=== PATIENT | male | born 1955 | race Caucasian/White ===

== ENCOUNTER 2019-08-09 19:15 | Emergency (ER) | payer MEDICARE ==
[~2019-08-09] VITALS: Ht 170.2 cm; Wt 110.0 kg
[~2019-08-09 19:15] MED LIST: ALLO100T PO; ATOR40TA75 PO; CIPR-249 PO; COMBAER6 INH; ENAL20TA PO; FLON0.054; FLUT11IN INH; FURO20TA2 PO; GEMF600T5 PO; HYDR-3713 PO; IPRA0.00 INH; IPRAINH INH; METR-265 PO; MOBI4TAB PO; OMEP1CAP73 PO; PROAAER10 INH
[2019-08-09] MEDS ORDERED: PRED20TA PO (19:41)
[2019-08-09] MEDS ORDERED: AZIT-12 PO (19:41)
[2019-08-09] MEDS ORDERED: OXYC1TAB23 PO (19:41)
[2019-08-09] MEDS ORDERED: GABA600T4 PO (19:45)
[2019-08-09] MEDS ORDERED: METF10004 PO (19:45)
[2019-08-09 19:54] LABS: HEMATOCRIT 35.3 % (42.0-52.0); HEMOGLOBIN 12.3 g/dl (13.5-17.5); LYMPH # 1.1 10^3/uL (1.5-5.0); LYMPH % 15.5 % (24.0-44.0); MEAN CORPUSCULAR HEMOGLOBIN 34.3 pg (27.0-33.0); MEAN CORPUSCULAR HGB CONC 34.8 g/dl (32.0-36.5); MEAN CORPUSCULAR VOLUME 98.3 fl (80.0-96.0); MONO # 0.5 10^3/uL (0.0-0.8); MONO % 7.4 % (0.0-5.0); NEUTROPHILS # 5.3 10^3/uL (1.5-8.5); NEUTROPHILS % 76.2 % (36.0-66.0); PLATELET COUNT, AUTOMATED 199 10^3/uL (150-450); RED BLOOD COUNT 3.59 10^6/uL (4.30-6.10); WHITE BLOOD COUNT 6.9 10^3/uL (4.0-10.0)
[2019-08-09 19:58] LABS: INR 0.98; PROTHROMBIN TIME 12.7 SECONDS (11.8-14.0)
[2019-08-09 19:59] LABS: PARTIAL THROMBOPLASTIN TIME 31.8 SECONDS (25.0-38.4)
[2019-08-09 20:06] LABS: BLOOD UREA NITROGEN 21 MG/DL (7-18); CALCIUM LEVEL 8.8 MG/DL (8.8-10.2); CARBON DIOXIDE LEVEL 31 MEQ/L (21-32); CHLORIDE LEVEL 102 MEQ/L (98-107); CK-MB VALUE MASS 2.2 NG/ML (<3.6); CPK CREATINE PHOSPHOKINASE 132 U/L (39-308); CREATININE FOR GFR 1.09 MG/DL (0.70-1.30); GLOMERULAR FILTRATION RATE > 60.0 (>49); GLUCOSE, FASTING 120 MG/DL (70-100); MB/CK RELATIVE INDEX 1.67 (< OR =4); NT-PRO BNP 188 PG/ML (<125); POTASSIUM SERUM 4.5 MEQ/L (3.5-5.1); SODIUM LEVEL 140 MEQ/L (136-145); TROPONIN I 0.02 NG/ML (< 0.10)
[2019-08-09] MEDS ORDERED: IPRATROPIUM 0.5MG/ALBUTEROL 2.5MG INH SOL UD 3ML (DUONEB) NEB ONE (20:30)
[2019-08-09] MEDS ORDERED: dexameTHASONE 20MG/5ML VIAL (J1100 PER 1MG) IV ONE (20:30)
[2019-08-09 20:35] LABS: VENOUS BASE EXCESS 5.2 (-2.0-2.0); VENOUS HCO3 31.3 MEQ/L (23.0-27.0); VENOUS O2 SATURATION 96.2 % (60.0-80.0); VENOUS PARTIAL PRESSURE CO2 52.7 mmHg (38.0-50.0); VENOUS PARTIAL PRESSURE O2 86.3 mmHg (30.0-50.0); VENOUS PH 7.392 UNITS (7.330-7.430); VENOUS STANDARD HCO3 29.1 MEQ/L; VENOUS TOTAL CO2 32.9 MEQ/L (24.0-28.0)
[2019-08-09] MEDS ORDERED: NITROGLYCERIN 2% OINT 1 GM *U/D* PKT TOP ONE (20:45)
[2019-08-09 20:55] VITALS: BP 172/84
[2019-08-09] MEDS ORDERED: PERCOCET 5MG/325MG TAB PO ONE (23:30)
[2019-08-10 00:12] LABS: CK-MB VALUE MASS 1.9 NG/ML (<3.6); CPK CREATINE PHOSPHOKINASE 119 U/L (39-308); TROPONIN I < 0.02 NG/ML (< 0.10)
[2019-08-10] MEDS ORDERED: PRED20TA PO (00:57)
[2019-08-10 01:53] VITALS: BP 174/90
--- NOTE | 2019-08-10 06:29 | ECGEPIP ---
[facility] - ED Test Date: 2019-08-09 Pat Name: DEVORAH JOHNSON Department: Room: - Gender: Male [employer]: mu : 1955 Requested By: RELL HAWK Order Number: [id number] Reading MD: Radha Girard Measurements Intervals [place] Rate: 85 P: 65 CA: 196 QRS: -75 QRSD: 186 T: 84 QT: 411 QTc: 490 Interpretive Statements ELECTRONIC VENTRICULAR PACEMAKER ABNORMAL RHYTHM ECG CW 01/19/15 RATE DECREASED NOW PACED Electronically Signed on 08-10-2019 6:29:34 EDT by Radha Girard
--- NOTE | 2019-08-11 12:02 | REP ---
REASON FOR EXAM: Dyspnea. COMPARISON: A two-view exam of 01/20/2015. The technique utilized in obtaining the radiograph has magnified the cardiac silhouette and accentuated the interstitial markings. Since the last exam, a dual-chamber bipolar pacemaker device has been placed the leads of which appear contiguous and appropriate. There are subtle bibasilar opacities. The pleural angles are sharp and the lung hoang are otherwise clear. The osseous structures are within normal limits. IMPRESSION: Subtle bibasilar opacities seen on this portable examination of the chest. Minimal basilar fibrotic change and/or subsegmental atelectatic change cannot be ruled out, particularly on the right. Correlate clinically. Electronically Signed by Will Pate DO 08/11/2019 03:15 P
== END 2019-08-10 02:06 | disposition home or self-care (01) ==
LOC: EDBD 19:15 → M ED 19:15
DX: J44.9 Chronic obstructive pulmonary disease, unspecified (principal); Z95.0 Presence of cardiac pacemaker; R94.31 Abnormal electrocardiogram [ECG] [EKG]; I10 Essential (primary) hypertension; I51.9 Heart disease, unspecified; E78.5 Hyperlipidemia, unspecified; G89.29 Other chronic pain; M54.9 Dorsalgia, unspecified; M19.90 Unspecified osteoarthritis, unspecified site; E66.9 Obesity, unspecified; Z79.899 Other long term (current) drug therapy; Z88.1 Allergy status to other antibiotic agents; Z88.5 Allergy status to narcotic agent; Z88.8 Allergy status to other drugs, medicaments and biological substances
CPT/HCPCS: 71045; 80048; 82550; 82553; 82803; 83880; 84484; 85025; 85610; 85730; 93005; 94640; 96374; 99285; J1100